=== PATIENT | male | born 1965 | race Caucasian/White ===

== ENCOUNTER 2022-12-18 00:39 | Inpatient (IN) | payer MEDICARE ==
[2022-12-18] MEDS ORDERED: Dextrose 50% Abboject 50 ML SYRINGE ONE ×5 (01:30→14:53)
[2022-12-18] MEDS: Dextrose 10% in Water 1,000 ML IV SCH ×4 (01:57→23:57)
[2022-12-18 02:05] LABS: Actual Bicarbonate (HCO3a) 25.1 mEq/L (22-28); Base Excess (BEa) -3.6 mEq/L (-2.0 to +3.0); Calcium, Ionized (arterial) 1.16 mmol/L (1.12-1.30); Carboxyhemoglobin (COHb) 1.7 gm% (0.0-3.0); Hematocrit-ABG 34 % (42.0-52.0); Hemoglobin (Hb) 11.5 g/dL (14.0-18.0); O2 Tension (PaO2), arterial 109.9 mmHg (80.0-100.0)
[2022-12-18 02:06] LABS: Puncture Site LRA
[2022-12-18 02:07] LABS: ALV-art Gradient 59.025 mmHg (0-20)
[2022-12-18] MEDS ORDERED: Ipratropium/Albuterol 3 ML NEB NEB PRN (02:14)
[2022-12-18] MEDS ORDERED: Glucagon 1 MG/ML KIT IM PRN (02:17)
[2022-12-18] MEDS ORDERED: Dextrose 5% in Water 1,000 ML IV PRN (02:17)
[2022-12-18] MEDS ORDERED: Ondansetron ODT 4 MG TAB PO PRN (02:18)
[2022-12-18] MEDS ORDERED: Acetaminophen 650 MG Suppository PR PRN (02:18)
[2022-12-18] MEDS ORDERED: Ondansetron PF 4 MG/2 ML Vial IVP PRN (02:18)
[2022-12-18 02:19] LABS: Bilirubin Negative (Negative); Blood, Urine 3+ (Negative); Clarity Clear (Clear); Glucose, Urine (Dipstick) Normal (Negative); Ketone, Urine Negative (Negative); Leukocyte Negative Leu/uL (Negative); Nitrite Negative (Negative); Protein, Urine (Dipstick) Negative (Neg-Trace); RBC/HPF Greater than 50 HPF (0-3); Specific Gravity, Urine 1.009 (1.002-1.036); Squamous Epithelial 0-3 HPF (0-3); Urobilinogen Normal mg/dL (Less than 2); WBC/HPF 21-50 HPF (0-3)
[2022-12-18 02:24] LABS: Bacteria/HPF 1+ HPF (None Seen)
[2022-12-18] MEDS ORDERED: Dextrose 50% Abboject 50 ML SYRINGE SLOW IVP SCH (02:30)
[2022-12-18] MEDS ORDERED: Sodium Bicarb 50 MEQ/50 ML VIAL IVP SCH ×2 (02:30→07:15)
[2022-12-18] MEDS ORDERED: Insulin Regular 300 UNITS/3 ML VIAL IVP SCH ×2 (02:30→07:15)
[2022-12-18] MEDS: Dextrose 50% Abboject 50 ML SYRINGE SLOW IVP PRN ×4 (02:35→14:54)
[2022-12-18] MEDS ORDERED: Piperacillin/Tazobactam 3.375 GM in Sodium Chloride 0.9% 100 ML IVPB SCH ×2 (03:30→08:00)
[2022-12-18] MEDS ORDERED: Clindamycin/D5W 300 MG/50 ML BAG IVPB SCH (06:00)
[2022-12-18 06:39] LABS: Anion Gap 19 mmol/L (10-20); BUN (Urea Nitrogen) 92 mg/dL (8.4-25.7); Calc. Creatinine Clearance 63 mL/min (70-130); Carbon Dioxide 22 mmol/L (22-29); Chloride 101 mmol/L (98-107); Estimated GFR 19; Glucose 69 mg/dL (70-105); Magnesium 1.9 mg/dL (1.6-2.6); Phosphorus 6.9 mg/dL (2.3-4.7); Sodium 136 mmol/L (136-145)
[2022-12-18 06:41] LABS: #Basophils 0.1 thou/uL (0.0-0.2); #Eosinphils 0.1 thou/uL (0.0-0.7); #Monocytes 0.4 thou/uL (0.11-0.59); #Neutrophils 3.9 thou/uL (1.40-6.50); %Basophils 0.9 % (0.0-1.0); %Lymphocytes 18.8 % (21.0-51.0); %Monocytes 6.5 % (0.0-10.0); %Neutrophils 71.1 % (42.0-75.0); Hematocrit 37.2 % (42.0-52.0); Hemoglobin 11.5 g/dL (14.0-18.0); Mean Corpuscular HGB CONC 30.9 g/dL (32.0-36.0); Mean Corpuscular Hemoglobin 31.2 pg (27.0-31.0); Mean Corpuscular Volume 100.8 fl (78.0-98.0); Mean Platelet Volume 12.1 fL (7.4-10.4); Platelet Count 156 10x3/uL (130-400); Potassium 6.3 mmol/L (3.5-5.1); RBC Distribution Width 13.7 % (11.5-14.5); Red Blood Cell (RBC) Count 3.69 mill/uL (4.70-6.10); White Blood Cell (WBC) Count 5.5 10x3/uL (4.8-10.8)
[2022-12-18] MEDS ORDERED: Dextrose 50% Abboject 50 ML SYRINGE SLOW IVP PRN (06:44)
[2022-12-18] MEDS ORDERED: Electrolyte Replacement Protocol FS SCH (06:45)
[2022-12-18] MEDS ORDERED: LOKELMA 10 GM PACKET PO SCH (07:15)
[2022-12-18] MEDS: Famotidine/PF 20 mg/2ml Vial SLOW IVP SCH (07:57)
[2022-12-18] MEDS: Heparin 5,000 UNITS/ML VIAL SC SCH ×3 (07:57→20:04)
[2022-12-18 09:49] LABS: Actual Bicarbonate (HCO3v) 22.5 mEq/L (22-28); Base Excess -5.3 mEq/L (-2.0 to +3.0); Calcium, Ionized (venous) 1.05 mmol/L (1.16-1.32); Chloride (VBG) 101 mmol/L (98-106); Hematocrit-VBG 34 % (42.0-52.0); Hemoglobin (Hb) 11.4 g/dL (13.1-17.2); Potassium (VBG) 5.81 mmol/L (3.70-5.30); Sodium 134.6 mmol/L (133-146); pH (venous) 7.231 (7.32-7.43)
[2022-12-18] MEDS: cefTRIAXone\\ROCEPHIN 1 GM in Sodium Chloride 0.9% 100 ML IVPB SCH (10:06)
[2022-12-18 10:29] LABS: Anion Gap 17 mmol/L (10-20); BUN (Urea Nitrogen) 92 mg/dL (8.4-25.7); Calc. Creatinine Clearance 66 mL/min (70-130); Calcium 8.5 mg/dL (7.8-10.44); Carbon Dioxide 22 mmol/L (22-29); Chloride 102 mmol/L (98-107); Estimated GFR 20; Sodium 135 mmol/L (136-145)
[2022-12-18 10:36] LABS: Glucose 52 mg/dL (70-105)
[2022-12-18] MEDS: Furosemide 40 MG/4 ML VIAL SLOW IVP SCH (13:32)
[2022-12-18 16:35] LABS: HBSAB Concentration Less than 8.00 mIU/mL; HBSAg Index 0.26 S/CO (0-0.99); Hep B Core Total Ab Non-Reactive (NonReactive); Hep B Core Total Index 0.06 S/CO (0-0.79); Hep B Surf AB Non-Reactive (NonReactive); Hep B Surf Ag Non-Reactive S/CO (NonReactive); Hep C IgG Ab Non-Reactive S/CO (NonReactive)
[2022-12-19] MEDS: Dextrose 10% in Water 1,000 ML IV SCH ×3 (02:01→20:38)
[2022-12-19 03:53] LABS: #Basophils 0.1 thou/uL (0.0-0.2); #Eosinphils 0.2 thou/uL (0.0-0.7); #Monocytes 0.4 thou/uL (0.11-0.59); #Neutrophils 3.8 thou/uL (1.40-6.50); %Eosinophils 3.5 % (0.0-10.0); %Lymphocytes 21.5 % (21.0-51.0); %Monocytes 6.9 % (0.0-10.0); %Neutrophils 66.6 % (42.0-75.0); Hemoglobin 10.1 g/dL (14.0-18.0); Mean Corpuscular HGB CONC 30.6 g/dL (32.0-36.0); Mean Corpuscular Hemoglobin 30.8 pg (27.0-31.0); Mean Corpuscular Volume 100.6 fl (78.0-98.0); Mean Platelet Volume 11.2 fL (7.4-10.4); Platelet Count 163 10x3/uL (130-400); RBC Distribution Width 13.7 % (11.5-14.5); Red Blood Cell (RBC) Count 3.28 mill/uL (4.70-6.10); White Blood Cell (WBC) Count 5.8 10x3/uL (4.8-10.8)
[2022-12-19 04:21] LABS: Anion Gap 14 mmol/L (10-20); BUN (Urea Nitrogen) 75 mg/dL (8.4-25.7); Calc. Creatinine Clearance 75 mL/min (70-130); Calcium 8.1 mg/dL (7.8-10.44); Carbon Dioxide 26 mmol/L (22-29); Chloride 98 mmol/L (98-107); Estimated GFR 23; Glucose 95 mg/dL (70-105); Potassium 5.7 mmol/L (3.5-5.1); Sodium 132 mmol/L (136-145)
[2022-12-19] MEDS: Furosemide 40 MG/4 ML VIAL SLOW IVP SCH ×2 (05:53→14:16)
[2022-12-19] MEDS: Heparin 5,000 UNITS/ML VIAL SC SCH ×3 (10:33→20:38)
[2022-12-19] MEDS: Famotidine/PF 20 mg/2ml Vial SLOW IVP SCH (10:35)
[2022-12-19] MEDS: cefTRIAXone\\ROCEPHIN 1 GM in Sodium Chloride 0.9% 100 ML IVPB SCH (10:35)
[2022-12-19 12:43] LABS: CO2 Tension 64.5 mmHg (35.0-45.0); pH, Arterial 7.208 (7.35-7.45)
[2022-12-19 12:44] LABS: Potassium - ABG Lab 6.57 mmol/L (3.70-5.30)
[2022-12-19] MEDS: Acetaminophen 325 MG TAB PO PRN (20:39)
[2022-12-20 04:38] LABS: #Eosinphils 0.2 thou/uL (0.0-0.7); #Monocytes 0.4 thou/uL (0.11-0.59); #Neutrophils 2.7 thou/uL (1.40-6.50); %Basophils 0.9 % (0.0-1.0); %Eosinophils 3.8 % (0.0-10.0); %Lymphocytes 24.8 % (21.0-51.0); %Monocytes 9.5 % (0.0-10.0); %Neutrophils 60.6 % (42.0-75.0); Hematocrit 31.5 % (42.0-52.0); Hemoglobin 9.7 g/dL (14.0-18.0); Mean Corpuscular HGB CONC 30.8 g/dL (32.0-36.0); Mean Corpuscular Hemoglobin 30.5 pg (27.0-31.0); Mean Corpuscular Volume 99.1 fl (78.0-98.0); Platelet Count 148 10x3/uL (130-400); RBC Distribution Width 13.4 % (11.5-14.5); Red Blood Cell (RBC) Count 3.18 mill/uL (4.70-6.10); White Blood Cell (WBC) Count 4.5 10x3/uL (4.8-10.8)
[2022-12-20 05:05] LABS: Anion Gap 11 mmol/L (10-20); BUN (Urea Nitrogen) 48 mg/dL (8.4-25.7); Calc. Creatinine Clearance 106 mL/min (70-130); Calcium 8.3 mg/dL (7.8-10.44); Carbon Dioxide 30 mmol/L (22-29); Chloride 99 mmol/L (98-107); Estimated GFR 36; Glucose 104 mg/dL (70-105); Potassium 4.8 mmol/L (3.5-5.1); Sodium 135 mmol/L (136-145)
[2022-12-20] MEDS: Furosemide 40 MG/4 ML VIAL SLOW IVP SCH ×2 (05:35→14:03)
[2022-12-20] MEDS: Heparin 5,000 UNITS/ML VIAL SC SCH ×3 (08:24→20:30)
[2022-12-20] MEDS: Famotidine/PF 20 mg/2ml Vial SLOW IVP SCH ×2 (08:24→20:29)
[2022-12-20] MEDS: Acetaminophen 325 MG TAB PO PRN (10:24)
[2022-12-20] MEDS: Dextrose 10% in Water 1,000 ML IV SCH (13:30)
[2022-12-21 04:01] LABS: #Eosinphils 0.1 thou/uL (0.0-0.7); #Monocytes 0.3 thou/uL (0.11-0.59); #Neutrophils 2.7 thou/uL (1.40-6.50); %Basophils 0.7 % (0.0-1.0); %Eosinophils 3.2 % (0.0-10.0); %Lymphocytes 26.8 % (21.0-51.0); %Monocytes 6.9 % (0.0-10.0); %Neutrophils 61.9 % (42.0-75.0); Hematocrit 31.1 % (42.0-52.0); Hemoglobin 9.8 g/dL (14.0-18.0); Mean Corpuscular HGB CONC 31.5 g/dL (32.0-36.0); Mean Corpuscular Hemoglobin 30.8 pg (27.0-31.0); Mean Corpuscular Volume 97.8 fl (78.0-98.0); Mean Platelet Volume 10.3 fL (7.4-10.4); Platelet Count 147 10x3/uL (130-400); RBC Distribution Width 13.2 % (11.5-14.5); Red Blood Cell (RBC) Count 3.18 mill/uL (4.70-6.10); White Blood Cell (WBC) Count 4.3 10x3/uL (4.8-10.8)
[2022-12-21 04:25] LABS: ALT (SGPT) 19 U/L (8-55); AST (SGOT) 43 U/L (5-34); Albumin 3.5 g/dL (3.5-5.0); Alkaline Phosphatase 41 U/L (40-110); Anion Gap 11 mmol/L (10-20); BUN (Urea Nitrogen) 24 mg/dL (8.4-25.7); Bilirubin, Total 0.4 mg/dL (0.2-1.2); Calc. Creatinine Clearance 172 mL/min (70-130); Calcium 8.6 mg/dL (7.8-10.44); Carbon Dioxide 33 mmol/L (22-29); Chloride 97 mmol/L (98-107); Estimated GFR 64; Globulin 3.2 g/dL (2.4-3.5); Glucose 120 mg/dL (70-105); Potassium 4.1 mmol/L (3.5-5.1); Protein, Total 6.7 g/dL (6.0-8.3); Sodium 137 mmol/L (136-145)
[2022-12-21] MEDS: Furosemide 40 MG/4 ML VIAL SLOW IVP SCH ×2 (05:46→15:00)
[2022-12-21] MEDS: Dextrose 10% in Water 1,000 ML IV SCH ×2 (05:55→16:02)
[2022-12-21] MEDS: Sertraline 100 MG TAB PO SCH (09:11)
[2022-12-21] MEDS: Heparin 5,000 UNITS/ML VIAL SC SCH ×3 (09:12→20:48)
[2022-12-21] MEDS: Lisinopril 20 MG TAB PO SCH (09:12)
[2022-12-21] MEDS: Famotidine/PF 20 mg/2ml Vial SLOW IVP SCH ×2 (09:12→20:46)
[2022-12-21] MEDS ORDERED: cefTRIAXone Sodium 2,000 MG in Syringe 0 ML IVPB SCH (10:30)
[2022-12-21] MEDS ORDERED: cefTRIAXone\\ROCEPHIN 2 GM in Sodium Chloride 0.9% 100 ML IVPB SCH ×2 (11:00→12:00)
[2022-12-21] MEDS ORDERED: Clindamycin/D5W 600 MG in Premix Bag 1 BAG IVPB SCH (12:00)
[2022-12-21] MEDS: Acetaminophen 325 MG TAB PO PRN ×2 (15:01→20:47)
[2022-12-21] MEDS: Clindamycin 150 MG CAP PO SCH (18:42)
[2022-12-21] MEDS: Rosuvastatin 20 MG TAB PO SCH (20:46)
[2022-12-22] MEDS: Clindamycin 150 MG CAP PO SCH ×5 (00:13→23:35)
[2022-12-22 03:57] LABS: #Eosinphils 0.2 thou/uL (0.0-0.7); #Monocytes 0.4 thou/uL (0.11-0.59); #Neutrophils 3.2 thou/uL (1.40-6.50); %Basophils 0.6 % (0.0-1.0); %Eosinophils 2.9 % (0.0-10.0); %Lymphocytes 25.6 % (21.0-51.0); %Monocytes 7.9 % (0.0-10.0); %Neutrophils 62.4 % (42.0-75.0); Hematocrit 34.9 % (42.0-52.0); Hemoglobin 11.1 g/dL (14.0-18.0); Mean Corpuscular HGB CONC 31.8 g/dL (32.0-36.0); Mean Corpuscular Hemoglobin 30.7 pg (27.0-31.0); Mean Corpuscular Volume 96.4 fl (78.0-98.0); Mean Platelet Volume 10.1 fL (7.4-10.4); Platelet Count 155 10x3/uL (130-400); RBC Distribution Width 12.8 % (11.5-14.5); Red Blood Cell (RBC) Count 3.62 mill/uL (4.70-6.10); White Blood Cell (WBC) Count 5.2 10x3/uL (4.8-10.8)
[2022-12-22 04:19] LABS: Anion Gap 11 mmol/L (10-20); BUN (Urea Nitrogen) 26 mg/dL (8.4-25.7); CRP (Inflammatory) 1.68 mg/dL (= or < 0.5); Calc. Creatinine Clearance 153 mL/min (70-130); Calcium 8.9 mg/dL (7.8-10.44); Carbon Dioxide 33 mmol/L (22-29); Chloride 95 mmol/L (98-107); Estimated GFR 58; Glucose 127 mg/dL (70-105); Potassium 3.8 mmol/L (3.5-5.1); Sodium 135 mmol/L (136-145)
[2022-12-22] MEDS: Dextrose 10% in Water 1,000 ML IV SCH (05:53)
[2022-12-22] MEDS: Furosemide 40 MG/4 ML VIAL SLOW IVP SCH ×2 (06:35→13:05)
[2022-12-22] MEDS: Acetaminophen 325 MG TAB PO PRN (08:42)
[2022-12-22] MEDS: Famotidine/PF 20 mg/2ml Vial SLOW IVP SCH ×2 (08:43→20:05)
[2022-12-22] MEDS: Lisinopril 20 MG TAB PO SCH (08:43)
[2022-12-22] MEDS: Sertraline 100 MG TAB PO SCH (08:43)
[2022-12-22] MEDS: Heparin 5,000 UNITS/ML VIAL SC SCH ×3 (08:43→20:05)
[2022-12-22] MEDS: Cyclobenzaprine 10 MG TAB PO PRN (08:47)
[2022-12-22] MEDS: cefOXitin 2 GM in Sodium Chloride 0.9% 100 ML IVPB SCH ×2 (13:05→21:54)
[2022-12-22] MEDS: hydrOXYzine 25 MG TAB PO PRN (18:36)
[2022-12-22] MEDS: Rosuvastatin 20 MG TAB PO SCH (20:05)
[2022-12-23] MEDS ORDERED: Benzonatate 100 MG CAP PO SCH (01:15)
[2022-12-23] MEDS: Clindamycin 150 MG CAP PO SCH ×4 (05:17→22:29)
[2022-12-23] MEDS: Furosemide 40 MG/4 ML VIAL SLOW IVP SCH ×2 (05:17→13:16)
[2022-12-23] MEDS: cefOXitin 2 GM in Sodium Chloride 0.9% 100 ML IVPB SCH ×3 (05:18→21:32)
[2022-12-23 09:14] VITALS: BMI 55.9
[2022-12-23] MEDS: Acetaminophen 325 MG TAB PO PRN (09:56)
[2022-12-23] MEDS: Lisinopril 20 MG TAB PO SCH (09:57)
[2022-12-23] MEDS: Heparin 5,000 UNITS/ML VIAL SC SCH ×3 (09:57→21:32)
[2022-12-23] MEDS: Famotidine/PF 20 mg/2ml Vial SLOW IVP SCH ×2 (09:57→21:32)
[2022-12-23] MEDS: Sertraline 100 MG TAB PO SCH (09:58)
[2022-12-23 10:24] LABS: #Eosinphils 0.2 thou/uL (0.0-0.7); #Monocytes 0.5 thou/uL (0.11-0.59); #Neutrophils 4.4 thou/uL (1.40-6.50); %Basophils 0.5 % (0.0-1.0); %Eosinophils 3.4 % (0.0-10.0); %Lymphocytes 19.6 % (21.0-51.0); %Monocytes 7.6 % (0.0-10.0); %Neutrophils 68.3 % (42.0-75.0); Hematocrit 38.3 % (42.0-52.0); Hemoglobin 11.9 g/dL (14.0-18.0); Mean Corpuscular HGB CONC 31.1 g/dL (32.0-36.0); Mean Corpuscular Hemoglobin 30.4 pg (27.0-31.0); Mean Corpuscular Volume 97.7 fl (78.0-98.0); Mean Platelet Volume 9.9 fL (7.4-10.4); Platelet Count 159 10x3/uL (130-400); RBC Distribution Width 12.7 % (11.5-14.5); Red Blood Cell (RBC) Count 3.92 mill/uL (4.70-6.10); White Blood Cell (WBC) Count 6.5 10x3/uL (4.8-10.8)
[2022-12-23 12:04] LABS: BUN (Urea Nitrogen) 28 mg/dL (8.4-25.7); Calc. Creatinine Clearance 131 mL/min (70-130); Calcium 9.2 mg/dL (7.8-10.44); Estimated GFR 51; Glucose 162 mg/dL (70-105)
[2022-12-23 12:10] LABS: Carbon Dioxide Greater than 37 mmol/L (22-29); Chloride 86 mmol/L (98-107); Potassium 3.9 mmol/L (3.5-5.1); Sodium 137 mmol/L (136-145)
[2022-12-23] MEDS: hydrOXYzine 25 MG TAB PO PRN ×2 (13:16→22:56)
[2022-12-23] MEDS ORDERED: Lactated Ringer's 1,000 ML IV SCH (14:00)
[2022-12-23] MEDS ORDERED: HumaLOG 300 UNITS/3 ML VIAL SC PRN (17:33)
[2022-12-23] MEDS: Rosuvastatin 20 MG TAB PO SCH (21:32)
[2022-12-23] MEDS: Cyclobenzaprine 10 MG TAB PO PRN (22:57)
[2022-12-24] MEDS: Clindamycin 150 MG CAP PO SCH ×4 (06:11→20:58)
[2022-12-24] MEDS: cefOXitin 2 GM in Sodium Chloride 0.9% 100 ML IVPB SCH ×3 (06:12→20:55)
[2022-12-24 07:23] LABS: #Basophils 0.1 thou/uL (0.0-0.2); #Eosinphils 0.3 thou/uL (0.0-0.7); #Monocytes 0.5 thou/uL (0.11-0.59); #Neutrophils 3.5 thou/uL (1.40-6.50); %Eosinophils 4.6 % (0.0-10.0); %Lymphocytes 25.3 % (21.0-51.0); %Monocytes 7.9 % (0.0-10.0); %Neutrophils 60.5 % (42.0-75.0); Hematocrit 36.1 % (42.0-52.0); Hemoglobin 11.6 g/dL (14.0-18.0); Mean Corpuscular HGB CONC 32.1 g/dL (32.0-36.0); Mean Corpuscular Hemoglobin 30.5 pg (27.0-31.0); Mean Platelet Volume 10.3 fL (7.4-10.4); Platelet Count 154 10x3/uL (130-400); RBC Distribution Width 12.7 % (11.5-14.5); White Blood Cell (WBC) Count 5.9 10x3/uL (4.8-10.8)
[2022-12-24 07:48] LABS: Anion Gap 14 mmol/L (10-20); BUN (Urea Nitrogen) 36 mg/dL (8.4-25.7); Calc. Creatinine Clearance 122 mL/min (70-130); Calcium 9.1 mg/dL (7.8-10.44); Carbon Dioxide 37 mmol/L (22-29); Chloride 88 mmol/L (98-107); Estimated GFR 47; Glucose 160 mg/dL (70-105); Sodium 135 mmol/L (136-145)
[2022-12-24] MEDS: Famotidine/PF 20 mg/2ml Vial SLOW IVP SCH ×2 (08:21→20:55)
[2022-12-24] MEDS: Heparin 5,000 UNITS/ML VIAL SC SCH ×3 (08:21→20:55)
[2022-12-24] MEDS: Sertraline 100 MG TAB PO SCH (08:21)
[2022-12-24] MEDS: hydrOXYzine 25 MG TAB PO PRN ×2 (08:21→20:54)
[2022-12-24] MEDS: Lisinopril 20 MG TAB PO SCH (08:24)
[2022-12-24] MEDS: HumaLOG 300 UNITS/3 ML VIAL SC PRN ×2 (12:33→17:40)
[2022-12-24] MEDS: Cyclobenzaprine 10 MG TAB PO PRN (20:55)
[2022-12-24] MEDS: Rosuvastatin 20 MG TAB PO SCH (20:55)
[2022-12-25] MEDS ORDERED: Furosemide 40 MG/4 ML VIAL SLOW IVP SCH (06:00)
[2022-12-25] MEDS: Clindamycin 150 MG CAP PO SCH ×5 (06:05→23:56)
[2022-12-25] MEDS: HumaLOG 300 UNITS/3 ML VIAL SC PRN ×3 (06:06→18:02)
[2022-12-25] MEDS: cefOXitin 2 GM in Sodium Chloride 0.9% 100 ML IVPB SCH ×3 (06:06→21:04)
[2022-12-25] MEDS: Lisinopril 20 MG TAB PO SCH (08:24)
[2022-12-25] MEDS: Sertraline 100 MG TAB PO SCH (08:24)
[2022-12-25] MEDS: Heparin 5,000 UNITS/ML VIAL SC SCH ×3 (08:25→21:05)
[2022-12-25] MEDS: Famotidine/PF 20 mg/2ml Vial SLOW IVP SCH ×2 (08:25→21:03)
[2022-12-25] MEDS: Acetaminophen 325 MG TAB PO PRN ×3 (08:29→21:03)
[2022-12-25 08:52] LABS: #Basophils 0.1 thou/uL (0.0-0.2); #Eosinphils 0.3 thou/uL (0.0-0.7); #Monocytes 0.4 thou/uL (0.11-0.59); #Neutrophils 3.5 thou/uL (1.40-6.50); %Basophils 0.9 % (0.0-1.0); %Eosinophils 4.6 % (0.0-10.0); %Lymphocytes 23.6 % (21.0-51.0); %Monocytes 6.4 % (0.0-10.0); %Neutrophils 63.8 % (42.0-75.0); Hematocrit 35.2 % (42.0-52.0); Hemoglobin 11.3 g/dL (14.0-18.0); Mean Corpuscular HGB CONC 32.1 g/dL (32.0-36.0); Mean Corpuscular Hemoglobin 30.7 pg (27.0-31.0); Mean Corpuscular Volume 95.7 fl (78.0-98.0); Mean Platelet Volume 10.2 fL (7.4-10.4); Platelet Count 146 10x3/uL (130-400); RBC Distribution Width 12.5 % (11.5-14.5); Red Blood Cell (RBC) Count 3.68 mill/uL (4.70-6.10); White Blood Cell (WBC) Count 5.5 10x3/uL (4.8-10.8)
[2022-12-25 09:15] LABS: Anion Gap 14 mmol/L (10-20); BUN (Urea Nitrogen) 41 mg/dL (8.4-25.7); Calc. Creatinine Clearance 116 mL/min (70-130); Calcium 9.1 mg/dL (7.8-10.44); Carbon Dioxide 34 mmol/L (22-29); Chloride 90 mmol/L (98-107); Estimated GFR 44; Glucose 190 mg/dL (70-105); Potassium 3.9 mmol/L (3.5-5.1); Sodium 134 mmol/L (136-145)
[2022-12-25] MEDS: hydrOXYzine 25 MG TAB PO PRN ×2 (15:04→23:56)
[2022-12-25] MEDS: Cyclobenzaprine 10 MG TAB PO PRN (21:03)
[2022-12-25] MEDS: Rosuvastatin 20 MG TAB PO SCH (21:04)
[2022-12-26] MEDS: Clindamycin 150 MG CAP PO SCH ×3 (06:23→17:34)
[2022-12-26] MEDS: cefOXitin 2 GM in Sodium Chloride 0.9% 100 ML IVPB SCH ×2 (06:23→14:46)
[2022-12-26 06:25] LABS: Anion Gap 12 mmol/L (10-20); BUN (Urea Nitrogen) 37 mg/dL (8.4-25.7); Calc. Creatinine Clearance 139 mL/min (70-130); Calcium 9.1 mg/dL (7.8-10.44); Carbon Dioxide 34 mmol/L (22-29); Chloride 92 mmol/L (98-107); Estimated GFR 55; Glucose 200 mg/dL (70-105); Potassium 4.2 mmol/L (3.5-5.1); Sodium 134 mmol/L (136-145)
[2022-12-26] MEDS: hydrOXYzine 25 MG TAB PO PRN (07:12)
[2022-12-26] MEDS: Famotidine/PF 20 mg/2ml Vial SLOW IVP SCH (08:13)
[2022-12-26] MEDS: Heparin 5,000 UNITS/ML VIAL SC SCH ×2 (08:13→14:46)
[2022-12-26] MEDS: Sertraline 100 MG TAB PO SCH (08:14)
[2022-12-26] MEDS: Lisinopril 20 MG TAB PO SCH (08:14)
[2022-12-26] MEDS: HumaLOG 300 UNITS/3 ML VIAL SC PRN ×2 (11:44→17:34)
[2022-12-26] MEDS ORDERED: Simethicone Chewable 80 MG TAB PO PRN (13:24)
[2022-12-26 18:45] VITALS: BP 124/64; TEMP 98.9
== END 2022-12-26 18:01 | disposition swing bed (61) | DRG 291 ==
LOC: CCU 01:11 → IMCU/EMU 12-21 12:21 → T4-B 12-23 18:16
PROVIDERS: ADMIT Student in an Organized Health Care Education/Training Program; ATTEND Internal Medicine
PROC: 06HY33Z Insertion of Infusion Device into Lower Vein, Percutaneous Approach (ICD-10-PCS; principal; 2022-12-18)
PROC: 4A133R1 Monitoring of Arterial Saturation, Peripheral, Percutaneous Approach (ICD-10-PCS; 2022-12-18)
PROC: 5A09457 Assistance with Respiratory Ventilation, 24-96 Consecutive Hours, Continuous Positive Airway Pressure (ICD-10-PCS; 2022-12-18)
PROC: 5A1D70Z Performance of Urinary Filtration, Intermittent, Less than 6 Hours Per Day (ICD-10-PCS; 2022-12-18)
PROC: 5A1D70Z Performance of Urinary Filtration, Intermittent, Less than 6 Hours Per Day (ICD-10-PCS; 2022-12-19)
PROC: 5A1D70Z Performance of Urinary Filtration, Intermittent, Less than 6 Hours Per Day (ICD-10-PCS; 2022-12-20)
DX: I13.0 Hypertensive heart and chronic kidney disease with heart failure and stage 1 through stage 4 chronic kidney disease, or unspecified chronic kidney disease (principal); I50.33 Acute on chronic diastolic (congestive) heart failure; J96.21 Acute and chronic respiratory failure with hypoxia; J96.22 Acute and chronic respiratory failure with hypercapnia; N17.9 Acute kidney failure, unspecified; L03.113 Cellulitis of right upper limb; E87.1 Hypo-osmolality and hyponatremia; E87.3 Alkalosis; I31.39 Other pericardial effusion (noninflammatory); Z68.43 Body mass index [BMI] 50.0-59.9, adult; E66.01 Morbid (severe) obesity due to excess calories; N40.0 Benign prostatic hyperplasia without lower urinary tract symptoms; E78.5 Hyperlipidemia, unspecified; J44.9 Chronic obstructive pulmonary disease, unspecified; E87.6 Hypokalemia; E11.649 Type 2 diabetes mellitus with hypoglycemia without coma; I87.2 Venous insufficiency (chronic) (peripheral); N18.9 Chronic kidney disease, unspecified; E11.22 Type 2 diabetes mellitus with diabetic chronic kidney disease; R53.81 Other malaise; Z79.899 Other long term (current) drug therapy; Z79.84 Long term (current) use of oral hypoglycemic drugs; Z88.1 Allergy status to other antibiotic agents; Z88.5 Allergy status to narcotic agent
CPT/HCPCS: 36415; 36416; 36600; 71045; 80048; 80053; 81001; 82550; 82805; 83735; 84100; 85025; 85652; 86140; 86704; 87086; 90935; 93306; 94660; 97139; G0257; J0694; J0696; J1611; J1642; J1644; J1815; J1940; J2543; J3490; J7120; J7999; S0028

== ENCOUNTER 2024-12-28 09:53 | Inpatient (IN) | payer MEDICARE, SELFPAY ==
[2024-12-28 10:52] LABS: #Basophils 0.06 10x3/uL (0.0-0.2); #Eosinophils 0.14 10x3/uL (0.0-0.7); #Monocytes 0.41 10x3/uL (0.11-0.59); #Neutrophils 3.41 10x3/uL (1.40-6.50); %Basophils 1.0 % (0.0-1.0); %Eosinophils 2.4 % (0.0-10.0); %Lymphocytes 30.4 % (21.0-51.0); %Monocytes 7.0 % (0.0-10.0); %Neutrophils 58.7 % (42.0-75.0); Hematocrit 29.4 % (42.0-52.0); Hemoglobin 9.9 g/dL (14.0-18.0); Mean Corpuscular Hemoglobin 28.3 pg (27.0-31.0); Mean Corpuscular Volume 84.0 fL (78.0-98.0); Platelet Count 197 10x3/uL (130-400); Red Blood Cell (RBC) Count 3.50 mill/uL (4.70-6.10); White Blood Cell (WBC) Count 5.82 10x3/uL (4.8-10.8)
[2024-12-28 11:16] LABS: ALT (SGPT) 11 U/L (Less than 45); AST (SGOT) 16 U/L (11-34); Albumin 3.5 g/dL (3.1-4.5); Alkaline Phosphatase 104 U/L (40-110); Anion Gap 15 mmol/L (10-20); BUN (Urea Nitrogen) 36 mg/dL (8.4-25.7); Bilirubin, Total 0.2 mg/dL (0.3-1.2); Calc. Creatinine Clearance 0 mL/min (70-130); Calcium 8.6 mg/dL (7.8-10.44); Carbon Dioxide 26 mmol/L (23-31); Chloride 93 mmol/L (98-107); Globulin 3.3 g/dL (2.4-3.5); Glucose 434 mg/dL (80-115); Lipase 56 U/L (8-78); Magnesium 1.6 mg/dL (1.6-2.6); Potassium 4.0 mmol/L (3.5-5.1); Sodium 130 mmol/L (136-145)
[2024-12-28] MEDS ORDERED: Iopamidol-370 76% 500 ML MDV (1 ML CHARGE) ONE (11:24)
[2024-12-28 11:43] LABS: CK (CPK) 97 U/L (30-200)
[2024-12-28] MEDS ORDERED: Vancomycin (BATCH) 2.5 GM in Premix 1 BAG IVPB SCH (13:00)
[2024-12-28] MEDS ORDERED: Ondansetron PF 4 MG/2 ML Vial IVP PRN (16:37)
[2024-12-28] MEDS ORDERED: Melatonin 3 MG TAB PO PRN (16:37)
[2024-12-28] MEDS ORDERED: Senokot S 8.6-50 MG TAB PO PRN (16:37)
[2024-12-28] MEDS ORDERED: Glucagon 1 MG/ML KIT IM PRN (16:41)
[2024-12-28] MEDS ORDERED: Dextrose 50% Abboject 50 ML SYRINGE SLOW IVP PRN (16:41)
[2024-12-28] MEDS ORDERED: Electrolyte Replacement Protocol 1 EACH FS SCH (16:45)
[2024-12-28 17:04] LABS: INR-International Normal Ratio 1.1; PTT 26.7 sec (22.9-36.1); Prothrombin Time 14.1 sec (12.0-14.7)
[2024-12-28 18:36] VITALS: BMI 48.1
[2024-12-28] MEDS: Linezolid 600 MG in Premix 1 BAG IVPB SCH (19:22)
[2024-12-28] MEDS: Vancomycin (BATCH) 2.5 GM in Premix 1 BAG IVPB SCH (19:22)
[2024-12-28] MEDS: Apixaban 5 MG TAB PO SCH (23:55)
[2024-12-28] MEDS: Magnesium 2 GM/50 ML(in water) 2 GM in Premix 1 BAG IVPB SCH (23:56)
[2024-12-29] MEDS: Acetaminophen 325 MG TAB PO PRN (03:58)
[2024-12-29 04:08] LABS: #Basophils 0.04 10x3/uL (0.0-0.2); #Eosinophils 0.17 10x3/uL (0.0-0.7); #Monocytes 0.26 10x3/uL (0.11-0.59); #Neutrophils 2.18 10x3/uL (1.40-6.50); %Basophils 0.9 % (0.0-1.0); %Eosinophils 4.0 % (0.0-10.0); %Lymphocytes 37.8 % (21.0-51.0); %Monocytes 6.1 % (0.0-10.0); %Neutrophils 50.7 % (42.0-75.0); Hematocrit 28.5 % (42.0-52.0); Hemoglobin 9.3 g/dL (14.0-18.0); Mean Corpuscular Hemoglobin 28.2 pg (27.0-31.0); Mean Corpuscular Volume 86.4 fL (78.0-98.0); Platelet Count 192 10x3/uL (130-400); Red Blood Cell (RBC) Count 3.30 mill/uL (4.70-6.10); White Blood Cell (WBC) Count 4.29 10x3/uL (4.8-10.8)
[2024-12-29 04:20] LABS: Anion Gap 11 mmol/L (10-20); BUN (Urea Nitrogen) 34 mg/dL (8.4-25.7); Calc. Creatinine Clearance 117 mL/min (70-130); Calcium 8.4 mg/dL (7.8-10.44); Carbon Dioxide 31 mmol/L (23-31); Chloride 95 mmol/L (98-107); Glucose 257 mg/dL (80-115); Potassium 4.0 mmol/L (3.5-5.1); Sodium 133 mmol/L (136-145)
[2024-12-29] MEDS: Linezolid 600 MG in Premix 1 BAG IVPB SCH (04:53)
[2024-12-29] MEDS: PNEUMOC 20-VAL CONJ-DIP CRM/PF 0.5 ML SYRINGE IM ONE (10:25)
[2024-12-29] MEDS: diphenhydrAMINE 25 MG CAP PO PRN (13:11)
[2024-12-29] MEDS ORDERED: Vancomycin 1 GM in Premix 1 BAG IVPB SCH (21:00)
[2024-12-30] MEDS: Linezolid 600 MG in Premix 1 BAG IVPB SCH
[2024-12-30 04:06] LABS: #Basophils 0.06 10x3/uL (0.0-0.2); #Eosinophils 0.16 10x3/uL (0.0-0.7); #Monocytes 0.24 10x3/uL (0.11-0.59); #Neutrophils 2.51 10x3/uL (1.40-6.50); %Basophils 1.3 % (0.0-1.0); %Eosinophils 3.4 % (0.0-10.0); %Lymphocytes 36.3 % (21.0-51.0); %Monocytes 5.1 % (0.0-10.0); %Neutrophils 53.3 % (42.0-75.0); Hematocrit 31.5 % (42.0-52.0); Hemoglobin 10.1 g/dL (14.0-18.0); Mean Corpuscular Hemoglobin 27.6 pg (27.0-31.0); Mean Corpuscular Volume 86.1 fL (78.0-98.0); Platelet Count 215 10x3/uL (130-400); Red Blood Cell (RBC) Count 3.66 mill/uL (4.70-6.10); White Blood Cell (WBC) Count 4.71 10x3/uL (4.8-10.8)
[2024-12-30 04:34] LABS: Anion Gap 12 mmol/L (10-20); BUN (Urea Nitrogen) 24 mg/dL (8.4-25.7); Calc. Creatinine Clearance 117 mL/min (70-130); Calcium 8.7 mg/dL (7.8-10.44); Carbon Dioxide 27 mmol/L (23-31); Chloride 96 mmol/L (98-107); Glucose 249 mg/dL (80-115); Potassium 4.1 mmol/L (3.5-5.1); Sodium 131 mmol/L (136-145)
[2024-12-30] MEDS: Insulin Glargine 30 UNITS/0.3 ML VIAL SC SCH (09:52)
[2024-12-30] MEDS: oxyCODONE 5 MG TAB PO PRN (11:29)
[2024-12-30] MEDS: Senokot S 8.6-50 MG TAB PO SCH (20:03)
[2024-12-31 03:53] LABS: #Basophils 0.06 10x3/uL (0.0-0.2); #Eosinophils 0.22 10x3/uL (0.0-0.7); #Monocytes 0.47 10x3/uL (0.11-0.59); #Neutrophils 3.82 10x3/uL (1.40-6.50); %Basophils 1.0 % (0.0-1.0); %Eosinophils 3.6 % (0.0-10.0); %Lymphocytes 24.5 % (21.0-51.0); %Monocytes 7.7 % (0.0-10.0); %Neutrophils 62.5 % (42.0-75.0); Hematocrit 32.3 % (42.0-52.0); Hemoglobin 10.4 g/dL (14.0-18.0); Mean Corpuscular Hemoglobin 27.6 pg (27.0-31.0); Mean Corpuscular Volume 85.7 fL (78.0-98.0); Platelet Count 216 10x3/uL (130-400); Red Blood Cell (RBC) Count 3.77 mill/uL (4.70-6.10); White Blood Cell (WBC) Count 6.11 10x3/uL (4.8-10.8)
[2024-12-31 04:17] LABS: Anion Gap 14 mmol/L (10-20); BUN (Urea Nitrogen) 23 mg/dL (8.4-25.7); Calc. Creatinine Clearance 122 mL/min (70-130); Calcium 9.1 mg/dL (7.8-10.44); Carbon Dioxide 26 mmol/L (23-31); Chloride 96 mmol/L (98-107); Glucose 234 mg/dL (80-115); Potassium 4.1 mmol/L (3.5-5.1); Sodium 132 mmol/L (136-145)
[2024-12-31] MEDS: Sertraline 100 MG TAB PO SCH (08:54)
[2024-12-31] MEDS: glipiZIDE 10 MG TAB PO SCH (08:54)
[2024-12-31] MEDS: Carvedilol 3.125 MG TAB PO SCH (08:54)
[2024-12-31] MEDS: Furosemide 20 MG TAB PO SCH (08:54)
[2024-12-31] MEDS: Rosuvastatin 20 MG TAB PO SCH (08:54)
[2024-12-31] MEDS: oxyCODONE 5 MG TAB PO PRN (09:07)
[2025-01-01 04:02] LABS: #Basophils 0.07 10x3/uL (0.0-0.2); #Eosinophils 0.16 10x3/uL (0.0-0.7); #Monocytes 0.36 10x3/uL (0.11-0.59); #Neutrophils 3.35 10x3/uL (1.40-6.50); %Basophils 1.2 % (0.0-1.0); %Eosinophils 2.8 % (0.0-10.0); %Lymphocytes 29.3 % (21.0-51.0); %Monocytes 6.4 % (0.0-10.0); %Neutrophils 59.6 % (42.0-75.0); Hematocrit 33.7 % (42.0-52.0); Hemoglobin 11.1 g/dL (14.0-18.0); Mean Corpuscular Hemoglobin 27.5 pg (27.0-31.0); Mean Corpuscular Volume 83.6 fL (78.0-98.0); Platelet Count 229 10x3/uL (130-400); Red Blood Cell (RBC) Count 4.03 mill/uL (4.70-6.10); White Blood Cell (WBC) Count 5.63 10x3/uL (4.8-10.8)
[2025-01-01 04:34] LABS: Anion Gap 13 mmol/L (10-20); BUN (Urea Nitrogen) 28 mg/dL (8.4-25.7); Calc. Creatinine Clearance 110 mL/min (70-130); Calcium 9.2 mg/dL (7.8-10.44); Carbon Dioxide 26 mmol/L (23-31); Chloride 96 mmol/L (98-107); Glucose 186 mg/dL (80-115); Potassium 4.2 mmol/L (3.5-5.1); Sodium 131 mmol/L (136-145)
[2025-01-01] MEDS: Insulin Glargine 30 UNITS/0.3 ML VIAL SC SCH (08:48)
[2025-01-02 04:36] LABS: #Basophils 0.04 10x3/uL (0.0-0.2); #Eosinophils 0.17 10x3/uL (0.0-0.7); #Monocytes 0.31 10x3/uL (0.11-0.59); #Neutrophils 2.69 10x3/uL (1.40-6.50); %Basophils 0.8 % (0.0-1.0); %Eosinophils 3.3 % (0.0-10.0); %Lymphocytes 36.5 % (21.0-51.0); %Monocytes 6.1 % (0.0-10.0); %Neutrophils 52.7 % (42.0-75.0); Hematocrit 34.4 % (42.0-52.0); Hemoglobin 11.2 g/dL (14.0-18.0); Mean Corpuscular Hemoglobin 27.2 pg (27.0-31.0); Mean Corpuscular Volume 83.5 fL (78.0-98.0); Platelet Count 219 10x3/uL (130-400); Red Blood Cell (RBC) Count 4.12 mill/uL (4.70-6.10); White Blood Cell (WBC) Count 5.10 10x3/uL (4.8-10.8)
[2025-01-02 05:08] LABS: Anion Gap 14 mmol/L (10-20); BUN (Urea Nitrogen) 30 mg/dL (8.4-25.7); Calc. Creatinine Clearance 112 mL/min (70-130); Calcium 9.2 mg/dL (7.8-10.44); Carbon Dioxide 25 mmol/L (23-31); Chloride 97 mmol/L (98-107); Glucose 195 mg/dL (80-115); Potassium 4.2 mmol/L (3.5-5.1); Sodium 132 mmol/L (136-145)
[2025-01-02] MEDS: glipiZIDE 10 MG TAB PO SCH (19:28)
[2025-01-03 13:09] LABS: Anion Gap 15 mmol/L (10-20); BUN (Urea Nitrogen) 34 mg/dL (8.4-25.7); Calc. Creatinine Clearance 103 mL/min (70-130); Calcium 9.1 mg/dL (7.8-10.44); Carbon Dioxide 26 mmol/L (23-31); Chloride 99 mmol/L (98-107); Glucose 139 mg/dL (80-115); Potassium 4.0 mmol/L (3.5-5.1); Sodium 136 mmol/L (136-145)
[2025-01-03] MEDS: Cephalexin 250 MG CAP PO SCH (13:38)
[2025-01-03] MEDS: diphenhydrAMINE 30 GM TUBE TOP PRN (13:39)
[2025-01-04 08:29] VITALS: TEMP 98.3
[2025-01-04 11:34] VITALS: BP 91/61
[2025-01-04] MEDS ORDERED: Apixaban 5 MG TAB PO SCH (21:00)
== END 2025-01-04 14:30 | disposition home health service (06) | DRG 872 ==
LOC: ERS 09:53 → PCU 16:16
PROVIDERS: ADMIT Internal Medicine; ATTEND Emergency Medicine
DX: A41.9 Sepsis, unspecified organism (principal); I50.32 Chronic diastolic (congestive) heart failure; J96.11 Chronic respiratory failure with hypoxia; L03.116 Cellulitis of left lower limb; I82.402 Acute embolism and thrombosis of unspecified deep veins of left lower extremity; I13.0 Hypertensive heart and chronic kidney disease with heart failure and stage 1 through stage 4 chronic kidney disease, or unspecified chronic kidney disease; Z68.42 Body mass index [BMI] 45.0-49.9, adult; E78.5 Hyperlipidemia, unspecified; G47.33 Obstructive sleep apnea (adult) (pediatric); J44.9 Chronic obstructive pulmonary disease, unspecified; N18.30 Chronic kidney disease, stage 3 unspecified; E66.01 Morbid (severe) obesity due to excess calories; E11.65 Type 2 diabetes mellitus with hyperglycemia; N40.0 Benign prostatic hyperplasia without lower urinary tract symptoms; F41.9 Anxiety disorder, unspecified; I95.9 Hypotension, unspecified; R00.0 Tachycardia, unspecified; F32.A Depression, unspecified; K59.00 Constipation, unspecified; R51.9 Headache, unspecified; Z88.1 Allergy status to other antibiotic agents; Z88.5 Allergy status to narcotic agent; Z88.8 Allergy status to other drugs, medicaments and biological substances; Z79.899 Other long term (current) drug therapy
CPT/HCPCS: 36415; 36416; 70450; 71045; 71275; 72170; 80048; 80053; 82550; 83036; 83605; 83690; 83735; 84100; 84484; 85025; 85610; 85730; 86141; 87040; 87081; 93005; 93010; 93306; 93923; 94760; 96365; 96375; 97139; J0692; J1815; J2020; J2185; J2270; J3010; J3373; J3475; J7030; Q9967